=== PATIENT | female | born 1950 | race Caucasian/White ===

== ENCOUNTER 2017-11-23 09:24 | Outpatient (RCR) | payer OTHER ==
[2017-09-22 09:37] VITALS: BP 133/65
[2017-09-22] MEDS: ACETAMINOPHEN 325 MG TAB PO PRN (10:16)
[2017-09-22] MEDS: LIDOCAINE/SOD BICARB 8.4% SYR ID PRN (10:16)
[2017-09-22] MEDS: NS(*) 0.9% 100 ML BAG 100 ML IVPB PRN (10:16)
[~2017-11-23 09:24] MED LIST: ALBU8.5H IH; ALPR-1 PO; ALPR-459 PO; CHOL100058 PO; CITA-141 PO; CYAN100088 PO; DEXL60CA6 PO; DEXTROSE 5%(*) 100 ML BAG 100 ML IVPB PRN; DICL100G39 TOP; DILT240C76 PO; DOXY-179 PO; DULO30CA35 PO; FERR240T18 PO; FERR325T24 PO; FLUT1DIS29 IH; GUAI120L3 PO; HEPA1DIS12 IM; HYDR-318 PO; HYDR-385 PO; HYDR2TAB74 PO; INF100I IV; INFLIXIMAB IVPB ONE; LEVO75TA73 PO; LEVO88TA45 PO; LIDO700A29 TD; LORATADINE 10 MG TAB PO PRN; METH2.5T43 PO; NS 0.9% IVPB ONE; ONDA4TAB PO; ONDA8TAB98 PO; PRAV20TA66 PO; PRE1 PO; PRE5 PO; PROM-110 PO; ROS10 PO; TRAZ-156 PO; TURM500C7 PO; ZOLP-1 PO; ZOLP-358 PO
[2017-11-23 09:29] VITALS: BP 144/79
[2017-11-23] MEDS: LIDOCAINE/SOD BICARB 8.4% SYR ID PRN (09:44)
[2017-11-23] MEDS: NS(*) 0.9% 100 ML BAG 100 ML IVPB PRN (09:49)
[2017-11-23] MEDS: ACETAMINOPHEN 325 MG TAB PO PRN (09:51)
[2017-11-23 09:54] LABS: PLATELET COUNT, AUTOMATED 334 K/uL (150-450)
[2017-11-23] MEDS ORDERED: inFLIXimab 100 MG VIAL 700 MG in NS(*) 0.9% 250 ML BAG 250 ML IVPB ONE (10:30)
[2017-11-24] MEDS ORDERED: ALPR-1 PO (16:48)
[2017-11-30] MEDS ORDERED: ONDA8TAB98 PO (13:25)
[2017-11-30] MEDS ORDERED: HYDR-385 PO (15:47)
== END 2017-12-20 ==
LOC: SPU 09:24
PROVIDERS: ATTEND Nurse Practitioner Family
DX: K50.012 Crohn's disease of small intestine with intestinal obstruction (principal)
CPT/HCPCS: 82565; 84450; 85025; 85651; 86480; 96413; 96415; J1745; J7050

== ENCOUNTER → 2017-11-25 | Outpatient (CLI) | payer OTHER ==
[~2017-11-25] MED LIST changes: -DEXTROSE 5%(*) 100 ML BAG 100 ML IVPB PRN; -INFLIXIMAB IVPB ONE; -LORATADINE 10 MG TAB PO PRN; -NS 0.9% IVPB ONE
--- NOTE | 2017-11-25 14:46 | RADIOLOGY IMAGING REPORT ---
[place] [facility] [place] Micheline Ballard : 1950 MR: [id number] V: [id number] EXAM DATE: ORDERING PHYSICIAN: JERRY MCCLAIN TECHNOLOGIST: Location: [facility] Patient: Micheline Ballard : 1950 Visit/Account:[id number] Date of Sevice: 11/25/2017 Exam type: CHEST PA AND LAT History: cough, back pain Comparison: September 24, 2016. Findings: The lungs are free of acute effusions, infiltrates or edema. There is a small linear scar in the lef t lung base. The cardiac silhouette is normal in size. The trachea is midline. There are moderate spondylotic changes of the thoracic spine. IMPRESSION: 1. Small linear scar in the left lung base although no evidence of acute pulmonary consolidation Report Dictated By: Stephanie Arechiga MD at 11/25/2017 2:40 PM Report E-Signed By: Stephanie Arechiga MD at 11/25/2017 2:42 PM WSN:[email or web address]
--- NOTE | 2017-11-25 14:49 | RADIOLOGY IMAGING REPORT ---
FACILITY: [facility] PATIENT NAME: Micheline Ballard : 1950 MR: [id number] V: [id number] EXAM DATE: ORDERING PHYSICIAN: JERRY MCCLAIN TECHNOLOGIST: Location: [facility] [place] Patient: Micheline Ballard : 1950 Visit/Account:[id number] Date of Sevice: 11/25/2017 Exam type: THORACIC SPINE 2 VIEW History: cough, back pain Comparison: None. Findings: There are moderate spondylotic changes of the thoracic spine with disc space narrowing and small melania inal osteophytes. There is no evidence of acute fractures or subluxations IMPRESSION: 1. Moderate spondylotic changes of the thoracic spine Report Dictated By: Stephanie Arechiga MD at 11/25/2017 2:42 PM Report E-Signed By: Stephanie Arechiga MD at 11/25/2017 2:43 PM WSN:[email or web address]
== END ==
LOC: RAD 13:13
PROVIDERS: ATTEND Internal Medicine
DX: R91.8 Other nonspecific abnormal finding of lung field (principal); M47.894 Other spondylosis, thoracic region
CPT/HCPCS: 71046; 72070

== ENCOUNTER 2018-01-26 08:04 | Outpatient (RCR) | payer OTHER ==
[~2018-01-26 08:04] MED LIST changes: +DEXTROSE 5%(*) 100 ML BAG 100 ML IVPB PRN; +LIDOCAINE/SOD BICARB 8.4% SYR ID PRN; +NS(*) 0.9% 100 ML BAG 100 ML IVPB PRN
[2018-01-26 13:18] VITALS: BP 103/69
[2018-01-26] MEDS ORDERED: LORATADINE 10 MG TAB PO PRN (13:25)
[2018-01-26] MEDS ORDERED: ACETAMINOPHEN 325 MG TAB PO PRN (13:25)
[2018-01-26] MEDS ORDERED: inFLIXimab 100 MG VIAL 700 MG in NS(*) 0.9% 250 ML BAG 250 ML IVPB ONE (14:15)
[2018-01-26 16:03] VITALS: BP 111/84
[2018-01-31] MEDS ORDERED: CEPH500C24 PO (16:23)
== END 2018-02-17 11:00 | disposition home or self-care (01) ==
LOC: SPU 08:04
PROVIDERS: ATTEND Nurse Practitioner Family
DX: K50.012 Crohn's disease of small intestine with intestinal obstruction (principal)
CPT/HCPCS: 96413; 96415; J1745; J7050

== ENCOUNTER → 2018-01-31 | Outpatient (CLI) | payer OTHER ==
[~2018-01-31] MED LIST changes: +CEPH500C24 PO; -DEXTROSE 5%(*) 100 ML BAG 100 ML IVPB PRN; -LIDOCAINE/SOD BICARB 8.4% SYR ID PRN; -NS(*) 0.9% 100 ML BAG 100 ML IVPB PRN
--- NOTE | 2018-01-31 15:07 | RADIOLOGY IMAGING REPORT ---
FACILITY: [facility] PATIENT NAME: Micheline Ballard : 1950 MR: [id number] V: [id number] EXAM DATE: ORDERING PHYSICIAN: JOSELUIS PETERSEN TECHNOLOGIST: Location: [facility] Patient: Micheline Ballard : 1950 Visit/Account:[id number] Date of Sevice: 01/31/2018 Right upper extremity venous Doppler duplex ultrasound scan. HISTORY: Redness, pain, swelling right upper extremity, previous history of right upper extremity DVT . COMPARISON: 11/08/2016. A venous color flow Doppler duplex ultrasound scan with spectral analysis was performed on the upper extremity. The basilic vein, brachial veins, cephalic vein, axillary vein and internal jugular vein are unremarkable. The lateral aspect of the subclavian vein is unremarkable. The medial aspect of t he subclavian vein, the innominate vein, and the superior vena cava are obscured. Note that Doppler ultrasound is insensitive for evaluating the central veins of the chest. Thrombus in the right cephalic vein has resolved compared to previous. IMPRESSION: Resolution of right cephalic vein thrombus. Negative for acute deep vein thrombosis. Report Dictated By: Edgard Brownlee MD at 01/31/2018 2:59 PM Report E-Signed By: Edgard Brownlee MD at 01/31/2018 3:03 PM WSN:[email or web address]
== END ==
LOC: RAD 13:18
PROVIDERS: ATTEND Nurse Practitioner Primary Care
DX: M79.601 Pain in right arm (principal)

== ENCOUNTER → 2018-03-30 | Outpatient (CLI) | payer OTHER ==
[~2018-03-30] MED LIST changes: +ACETAMINOPHEN 325 MG TAB PO PRN; +DEXTROSE 5%(*) 100 ML BAG 100 ML IVPB PRN; -HEPA1DIS12 IM; +HEPA1DIS3 IM; +HEPA40VI2 IM; +LIDOCAINE/SOD BICARB 8.4% SYR ID PRN; +LORATADINE 10 MG TAB PO PRN; +NS(*) 0.9% 100 ML BAG 100 ML IVPB PRN; +inFLIXimab 100 MG VIAL 700 MG in NS(*) 0.9% 250 ML BAG 250 ML IVPB ONE
[2018-03-30 10:44] LABS: PLATELET COUNT, AUTOMATED 347 K/uL (150-450)
[2018-03-30 10:57] VITALS: BP 132/92
[2018-03-30 14:25] VITALS: BP 115/72
== END ==
LOC: SPU 07:39
PROVIDERS: ATTEND Internal Medicine
DX: M05.79 Rheumatoid arthritis with rheumatoid factor of multiple sites without organ or systems involvement (principal)
CPT/HCPCS: 82565; 84450; 85025; 85651; 96413; 96415; J1745; J7050

== ENCOUNTER → 2018-06-06 | Outpatient (CLI) | payer OTHER ==
[~2018-06-06] MED LIST changes: -TRAZ-156 PO; +TRAZ50TA34 PO; -inFLIXimab 100 MG VIAL 700 MG in NS(*) 0.9% 250 ML BAG 250 ML IVPB ONE; +inFLIXimab 100 MG VIAL 700 MG in NS(*) 0.9% 250 ML BAG 250 ML IVPB PRN
[2018-06-06 13:11] VITALS: BP 145/93
[2018-06-06 13:38] LABS: PLATELET COUNT, AUTOMATED 332 K/uL (150-450)
== END ==
LOC: SPU 09:13
PROVIDERS: ATTEND Internal Medicine Rheumatology
DX: M05.79 Rheumatoid arthritis with rheumatoid factor of multiple sites without organ or systems involvement (principal)
CPT/HCPCS: 82565; 84450; 85025; 85651; 96413; 96415; J1745; J7050

== ENCOUNTER 2018-07-07 20:18 | Emergency (ER) | payer OTHER ==
[~2018-07-07 20:18] MED LIST changes: -ACETAMINOPHEN 325 MG TAB PO PRN; -DEXTROSE 5%(*) 100 ML BAG 100 ML IVPB PRN; -LIDOCAINE/SOD BICARB 8.4% SYR ID PRN; -LORATADINE 10 MG TAB PO PRN; -NS(*) 0.9% 100 ML BAG 100 ML IVPB PRN; -inFLIXimab 100 MG VIAL 700 MG in NS(*) 0.9% 250 ML BAG 250 ML IVPB PRN
--- NOTE | 2018-07-07 20:27 | ER Report ---
History and Physical Time Seen By MD: 20:27 Hx. of Stated Complaint: PT REPORTS HAVING A FEW DRINKS AND THEN TRIPPED ON STEPS AT HOUSE. PT HAS SKIN FLAP ON LOWER LEFT LEG. HPI/ROS CHIEF COMPLAINT: leg laceration HISTORY OF PRESENT ILLNESS: This is a 67 year old female. She tripped at home on the stairs and has a large laceration on the left leg, anterior arroyo. Large flap of skin sheered off. No other injuries. Allergies: Coded Allergies: amoxicillin (Verified Adverse Reaction, Unknown, diarrhea, 07/07/18) clavulanic acid (Verified Adverse Reaction, Unknown, diarrhea, 07/07/18) morphine (Verified Adverse Reaction, Unknown, respiratory depression, 07/07/18) Home Meds Active Scripts Hydrocodone Bit/Acetaminophen (HYDROCODON-ACETAMINOPHEN 5-325) 1 Each Tablet, 1 EACH PO Q4H PRN for PAIN, #12 TAB 0 Refills Prov:SCOTTIE LEWIS MD 07/07/18 Cephalexin Monohydrate (CEPHALEXIN) 500 Mg Cap, 500 MG PO Q6H, #20 CAP 0 Refills Prov:SCOTTIE LEWIS MD 07/07/18 Albuterol Sulfate 90 Mcg/Act (PROAIR HFA 90 MCG/ACT) 8.5 Gm Hfa.aer.ad, 2 PUFF IH QID PRN for SHORTNESS OF BREATH, #1 INHALER Prov:JERRY MCCLAIN MD 05/29/18 Cephalexin Monohydrate (CEPHALEXIN) 500 Mg Cap, 1 CAP PO QID for 7 Days, #28 CAP 0 Refills Prov:JOSELUIS PETERSEN DNP, TRAVEL REGISTERED NURSE PACU-BC 01/31/18 Alprazolam 0.25 Mg Tab (XANAX 0.25 MG TAB) 0.25 Mg Tablet, 1 TAB PO QDAY PRN for ANXIETY, #30 TAB Prov:JERRY MCCLAIN MD 12/29/17 Hydrocodone Bit/Acetaminophen (HYDROCODON-ACETAMINOPHEN 5-325) 1 Each Tablet, 1 EACH PO Q6H PRN for pain, #30 TAB Prov:JERRY MCCLAIN MD 11/30/17 Ondansetron (ONDANSETRON ODT) 8 Mg Tab.rapdis, 8 MG PO TID PRN for nausea, #30 TAB 2 Refills Prov:JERRY MCCLAIN MD 11/30/17 Diltiazem Hcl (DILTIAZEM 24HR ER) 240 Mg Cap.er.24h, 1 CAP PO QDAY, #90 TAB 2 Refills Prov:JERRY MCCLAIN MD 10/25/17 Dexlansoprazole (DEXILANT) 60 Mg Cap., 1 CAP PO QDAY, #90 TAB 2 Refills Prov:JERRY MCCLAIN MD 10/25/17 Levothyroxine Sodium (LEVOTHYROXINE SODIUM) 75 Mcg Tablet, 1 TAB PO QDAY, #90 TAB 2 Refills Prov:JERRY MCCLAIN MD 10/25/17 Fluticasone/Salmeterol (ADVAIR 500-50 DISKUS) 1 Each Disk.w.dev, 1 EACH IH BID, #3 INH 6 Refills Prov:JERRY MCCLAIN MD 09/21/17 Pravastatin Sodium (PRAVASTATIN SODIUM) 20 Mg Tablet, 20 MG PO QDAY, #30 TAB 5 Refills Prov:JERRY MCCLAIN MD 09/21/17 Duloxetine Hcl (CYMBALTA) 30 Mg Capsule.dr, 30 MG PO QDAY, #30 CAP once daily x 1 week than 2 daily Prov:JERRY MCCLAIN MD 09/21/17 Citalopram Hydrobromide (CITALOPRAM HBR) 40 Mg Tablet, 0.5 TAB PO QDAY, #1 TAB 0.5 tablet daily x 1 week Prov:JERRY MCCLAIN MD 09/21/17 Ferrous Gluconate (FERROUS GLUCONATE) 240 Mg Tablet, 240 MG PO QDAY, #180 TAB 4 Refills Prov:JERRY MCCLAIN MD 06/15/17 Cyanocobalamin (Vitamin B-12) (B-12) 1,000 Mcg Tablet.er, 1000 MCG PO QDAY, #90 TAB 1 Refill Prov:JERRY MCCLAIN MD 12/10/16 Reported Medications Methotrexate Sodium (METHOTREXATE) 2.5 Mg Tablet, 4 TAB PO Q706/15/17 Cholecalciferol (Vitamin D3) (VITAMIN D) 1,000 Unit Capsule, 1 CAP PO QDAY, CAPSULE 09/01/16 Prednisone 5 Mg Tab (PREDNISONE 5 MG TAB) 5 Mg Tablet, 10 MG PO QDAY, TAB 08/31/16 Infliximab (REMICADE) 100 Mg Soln, 800 MG IV [id number] 08/31/16 Lidocaine (LIDODERM) 700 Mg Adh..patch, 1 PATCH TD QDAY 08/31/16 Diclofenac Sodium 1% Gel (VOLTAREN 1% GEL) 100 Gm Gel..gram., 1 MARY TOP PRN 08/31/16 Reviewed Nurses Notes: Yes Hx Smoking: No Smoking Status: Never Smoker Constitutional Vital Sign - Last 24 Hours 07/07/18 07/07/18 07/07/18 07/07/18 20:23 20:23 20:33 21:59 Temp 97.9 Pulse 80 64 85 Resp 20 16 B/P (MAP) 154/88 (110) 154/88 138/48 (78) Pulse Ox 93 93 92 O2 Delivery Room Air Room Air Physical Exam General: Alert, anxious, but otherwise no acute distress. Skin: Large skin flap skin tear laceration. about 19cm in total length. Exposes underlying subcutaneous fat. Some bruising of the surrounding tissue. Cardiovascular: Normal pulses and capillary refill. Musculoskeletal: Normal motor function. No tendon compromise. Neuro: Normal sensation. Medical Decision Making ED Course/Re-evaluation ED Course Procedure: Laceration Repair Verbal consent from patient after discussing repair options, risks and benefits. Wound cleaned extensively with Hibiclens and saline. Anesthesia: 2% lidocaine without epinephrine and 0.5% bupivacaine without epinephrine. Location: left anterior arroyo. Length: 19cm. Character: flap. There were no deep structures involved. No tendon injury was identified. Wound repair: 25 interrupted 4-0 Ethilon sutures, with one 4-0 Ethilon mattress suture. The wound repair was simple and performed by myself. Wound care instructions discussed. Sutures need to be removed in 7 days. Cephalexin 500mg four times a day for 5 days. Decision to Disposition Date: Jul 07, 2018 Decision to Disposition Time: 21:54 Depart Departure Latest Vital Signs Vital Signs Date Time Temp Pulse Resp B/P (MAP) Pulse Ox O2 Delivery O2 Flow Rate FiO2 07/07/18 21:59 85 16 138/48 (78) 92 Room Air 07/07/18 20:23 97.9 Impression: Primary Impression: Leg laceration Condition: Improved Disposition: HOME OR SELF-CARE Referrals: JERRY MCCLAIN MD (PCP) New Scripts Hydrocodone Bit/Acetaminophen (HYDROCODON-ACETAMINOPHEN 5-325) 1 Each Tablet 1 EACH PO Q4H PRN for PAIN, #12 TAB 0 Refills Prov: SCOTTIE LEWIS MD 07/07/18 Cephalexin Monohydrate (CEPHALEXIN) 500 Mg Cap 500 MG PO Q6H, #20 CAP 0 Refills Prov: SCOTTIE LEWIS MD 07/07/18 Patient Instructions: Laceration (ED) Additional Instructions: Wound Care: Wash the wound once a day with soap and water. Dry the wound and apply a small amount of antibiotic ointment with a clean dressing. If the dressing becomes wet or dirty, repeat cleaning and dressing as above. No soaking the wound; no swimming. Stitches need to be removed in 7 days. Pain Control: Use Lortab 5/325, one every 4 hours as needed for pain. Using and ice pack can help reduce swelling. Antibiotic: Cephalexin 500mg 4 times a day for 5 days. Problem Qualifiers Primary Impression: Leg laceration Encounter type: initial encounter Laterality: left Qualified Codes: S81.812A - Laceration without foreign body, left lower leg, initial encounter SCOTTIE LEWIS MD Jul 07, 2018 20:27
[2018-07-07] MEDS ORDERED: LOR5/325 PO (21:55)
[2018-07-07] MEDS ORDERED: CEPH500C24 PO (21:55)
[2018-07-07 21:59] VITALS: BP 138/48
[2018-07-07] MEDS ORDERED: APAP/HYDROCODONE 325/5 TAB PO ONE (22:00)
[2018-07-07] MEDS ORDERED: CEPHALEXIN 500 MG CAP TH 2 CAP/BOTTLE PO ONE (22:00)
[2018-07-07] MEDS ORDERED: ACET/HYDROC 5/325MG TH ER ONLY 2 TAB/BOTTLE PO ONE (22:00)
[2018-07-07] MEDS ORDERED: CEPHALEXIN MONO 500 MG CAP PO ONE (22:00)
== END 2018-07-07 22:17 | disposition home or self-care (01) ==
LOC: ER 20:26
DX: S81.812A Laceration without foreign body, left lower leg, initial encounter (principal); W18.49XA Other slipping, tripping and stumbling without falling, initial encounter
CPT/HCPCS: 99283

== ENCOUNTER 2018-08-10 12:27 | Emergency (ER) | payer OTHER ==
[~2018-08-10 12:27] MED LIST changes: +LOR5/325 PO
--- NOTE | 2018-08-10 13:14 | ER Report ---
History and Physical Time Seen By : 12:55 Hx. of Stated Complaint: Pt. has poorly healing left arroyo wound from laceration on 07/14. Pus at wound site. Pt. getting IV Remecade infusions for her RA. Tearful in triage. HPI/ROS CHIEF COMPLAINT: Wounds to left lower leg HISTORY OF PRESENT ILLNESS: 67-year-old female patient presents to emergency room with complaint of a wound to the left lower leg. Patient states that she hit her arroyo going up stairs a month ago and it up with a large skin tear. She states she did come to the emergency room that night and that was sutured up. She states she has since followed up with urgent care to have sutures removed and then to treat a infection which developed after the sutures were removed. Patient states that she was seen down in [place] yesterday was told by the nurse there that she is getting that evaluated as soon as possible as she is concerned that might be infected in the getting worse. Patient did try to get in with a wound care clinic, however was told that the early second get her and was in August. Patient is concerned that her infection may be getting worse. Patient had a culture done at the urgent care and was told that it was "normal". Allergies: Coded Allergies: amoxicillin (Verified Adverse Reaction, Unknown, diarrhea, 08/10/18) clavulanic acid (Verified Adverse Reaction, Unknown, diarrhea, 08/10/18) morphine (Verified Adverse Reaction, Unknown, respiratory depression, 08/10/18) Home Meds Active Scripts Albuterol Sulfate 90 Mcg/Act (PROAIR HFA 90 MCG/ACT) 8.5 Gm Hfa.aer.ad, 2 PUFF IH QID PRN for SHORTNESS OF BREATH, #1 INHALER Prov:JERRY MCCLAIN MD 05/29/18 Ondansetron (ONDANSETRON ODT) 8 Mg Tab.rapdis, 8 MG PO TID PRN for nausea, #30 TAB 2 Refills Prov:JERRY MCCLAIN MD 11/30/17 Diltiazem Hcl (DILTIAZEM 24HR ER) 240 Mg Cap.er.24h, 1 CAP PO QDAY, #90 TAB 2 Refills Prov:JERRY MCCLAIN MD 10/25/17 Dexlansoprazole (DEXILANT) 60 Mg Cap., 1 CAP PO QDAY, #90 TAB 2 Refills Prov:JERRY MCCLAIN MD 10/25/17 Levothyroxine Sodium (LEVOTHYROXINE SODIUM) 75 Mcg Tablet, 1 TAB PO QDAY, #90 TAB 2 Refills Prov:JERRY MCCLAIN MD 10/25/17 Fluticasone/Salmeterol (ADVAIR 500-50 DISKUS) 1 Each Disk.w.dev, 1 EACH IH BID, #3 INH 6 Refills Prov:JERRY MCCLAIN MD 09/21/17 Pravastatin Sodium (PRAVASTATIN SODIUM) 20 Mg Tablet, 20 MG PO QDAY, #30 TAB 5 Refills Prov:JERRY MCCLAIN MD 09/21/17 Citalopram Hydrobromide (CITALOPRAM HBR) 40 Mg Tablet, 0.5 TAB PO QDAY, #1 TAB 0.5 tablet daily x 1 week Prov:JERRY MCCLAIN MD 09/21/17 Cyanocobalamin (Vitamin B-12) (B-12) 1,000 Mcg Tablet.er, 1000 MCG PO QDAY, #90 TAB 1 Refill Prov:JERRY MCCLAIN MD 12/10/16 Reported Medications Cholecalciferol (Vitamin D3) (VITAMIN D) 1,000 Unit Capsule, 1 CAP PO QDAY, CAPSULE 09/01/16 Prednisone 5 Mg Tab (PREDNISONE 5 MG TAB) 5 Mg Tablet, 10 MG PO QDAY, TAB 08/31/16 Infliximab (REMICADE) 100 Mg Soln, 800 MG IV [id number] 08/31/16 Lidocaine (LIDODERM) 700 Mg Adh..patch, 1 PATCH TD QDAY 08/31/16 Diclofenac Sodium 1% Gel (VOLTAREN 1% GEL) 100 Gm Gel..gram., 1 MARY TOP PRN 08/31/16 Discontinued Reported Medications Methotrexate Sodium (METHOTREXATE) 2.5 Mg Tablet, 4 TAB PO Q7DAY 06/15/17 Discontinued Scripts Hydrocodone Bit/Acetaminophen (HYDROCODON-ACETAMINOPHEN 5-325) 1 Each Tablet, 1 EACH PO Q4H PRN for PAIN, #12 TAB 0 Refills Prov:SCOTTIE LEWIS MD 07/07/18 Cephalexin Monohydrate (CEPHALEXIN) 500 Mg Cap, 500 MG PO Q6H, #20 CAP 0 Refills Prov:SCOTTIE LEWIS MD 07/07/18 Cephalexin Monohydrate (CEPHALEXIN) 500 Mg Cap, 1 CAP PO QID for 7 Days, #28 CAP 0 Refills Prov:JOSELUIS PETERSEN DNP, RENAL MEDICINE PHYSICIAN-BC 01/31/18 Alprazolam 0.25 Mg Tab (XANAX 0.25 MG TAB) 0.25 Mg Tablet, 1 TAB PO QDAY PRN for ANXIETY, #30 TAB Prov:JERRY MCCLAIN MD 12/29/17 Hydrocodone Bit/Acetaminophen (HYDROCODON-ACETAMINOPHEN 5-325) 1 Each Tablet, 1 EACH PO Q6H PRN for pain, #30 TAB Prov:JERRY MCCLAIN MD 11/30/17 Duloxetine Hcl (CYMBALTA) 30 Mg Capsule.dr, 30 MG PO QDAY, #30 CAP once daily x 1 week than 2 daily Prov:JERRY MCCLAIN MD 09/21/17 Ferrous Gluconate (FERROUS GLUCONATE) 240 Mg Tablet, 240 MG PO QDAY, #180 TAB 4 Refills Prov:JERRY MCCLAIN MD 06/15/17 Reviewed Nurses Notes: Yes Hx Smoking: No Smoking Status: Never Smoker Hx Substance Use Disorder: No Hx Alcohol Use: No Constitutional Vital Sign - Last 24 Hours 08/10/18 08/10/18 12:41 14:07 Temp 98.3 Pulse 74 61 Resp 16 16 B/P (MAP) 117/80 107/62 (77) Pulse Ox 96 95 O2 Delivery Room Air Room Air Physical Exam General appearance: Alert no distress. Respiratory: Chest is non tender, lungs are clear to auscultation. Cardiac: Regular rate and rhythm. Skin: Patient has a cold wound to the left lower leg, it does appear that it has slough over the top, there is some drainage noted. DIFFERENTIAL DIAGNOSIS: After history and physical exam differential diagnosis was considered for delayed healing of wound. Medical Decision Making ED Course/Re-evaluation ED Course Patient was admitted to exam room, history and physical were obtained. Differential diagnoses were considered. On examination patient had a wound to the left lower leg which had what appeared to be delayed healing. With patient being anxious about wound care I did contact is good therapy which came down and evaluated and placed a dressing. They felt that the wound was looking well and would heal without any difficulties. I discussed this with patient. We will go ahead and discharge her home at this time. She does have a follow-up appointment at 10:30 with physical therapy on Tuesday next week. She missed make that appointment. She verbalized understanding and agreement with plan. Decision to Disposition Date: Aug 10, 2018 Decision to Disposition Time: 13:57 Depart Departure Latest Vital Signs Vital Signs Date Time Temp Pulse Resp B/P (MAP) Pulse Ox O2 Delivery O2 Flow Rate FiO2 08/10/18 14:07 61 16 107/62 (77) 95 Room Air 08/10/18 12:41 98.3 Impression: Primary Impression: Leg wound, left Condition: Improved Disposition: HOME OR SELF-CARE Referrals: JERRY MCCLAIN MD (PCP) Patient Instructions: Chronic Wound Care (ED) Additional Instructions: Follow up with PT on Tuesday at 10:30. Get plenty of rest. Limit activity by pain. Continue with normal medications. Return to the ER if condition worsens. Problem Qualifiers Primary Impression: Leg wound, left Encounter type: initial encounter Qualified Codes: S81.802A - Unspecified open wound, left lower leg, initial encounter TKTREVA RENAL MEDICINE PHYSICIAN Aug 10, 2018 13:14
[2018-08-10 14:07] VITALS: BP 107/62
== END 2018-08-10 14:15 | disposition home or self-care (01) ==
LOC: ER 12:56
DX: S81.802A Unspecified open wound, left lower leg, initial encounter (principal)
CPT/HCPCS: 97161; 99282

== ENCOUNTER 2018-08-29 10:30 | Outpatient (RCR) | payer OTHER ==
--- NOTE | 2018-08-17 23:14 | PT INITIAL EVALUATION ---
MEDICAL DIAGNOSIS: Trauma to L) anterior arroyo with slow healing skin tear TREATMENT DIAGNOSIS: same DATE OF ONSET: 07/07/18 SUBJECTIVE: Initial injury 07/07/18 with sutures performed to affix edge of skin tear while in ER. Pt returned to ER on 08/10/18 due to concern about delayed healing and drainage. Pt notes that Urgent care removed stitches and has been completing daily dressing changes to manage the drainage. Pt was seen by this PT while in the ER at most recent visit and was determined to be a good candidate for serial debridements to ensure removal of non-viable tissue and slough and allow for faster wound healing to minimize risk of further infection. Pt arrives today with dressing clean, dry and intact. REHAB PROBLEM LIST: Slow healing wound to L) anterior arroyo with complication of RA and Crohn's diseases. OBJECTIVE: Previous scabbed area at distal end of wound was able to be fully debrided today with healed epithelium noted beneath. Main wound bed now measures: 5.8cm L x 5.5cm W x 0.3cm D with 60% granulation tissue and 40% yellow slough present. ASSESSMENT: Pt indicates this is a very slow healing wound that was a fairly significant skin tear. Pt notes that her has been performing once or twice daily dressing changes to manage the copious drainage associated with this wound. Pt would benefit from advanced wound care products to optimize wound healing time while minimizing risk of infection, as she does have RA and Crohn's which can negatively impact wound healing as well. Short Term Goals 1. Pt to maintain a clean, dry and intact dressing between PT visits 2. Wound bed to demo 100% granulation base 3. Wound edges to gradually epithelialize inward for safe wound healing 4. No signs or symptoms of infection to be present during wound healing Patient's Goals Wound to heal efficiently without further complication PLAN: Patient to be seen for selective debridement, and advanced wound care product selection to optimize wound healing, once every other week for up to 3 months. Thank you for this referral. If you have any questions, comments, or concerns about this report or plan, please contact me at . H. Michela Abdul, PT, MPT, OMS MTDD
== END 2018-09-28 13:54 | disposition home or self-care (01) ==
LOC: PT 10:30
PROVIDERS: ATTEND Nurse Practitioner Family
DX: L97.921 Non-pressure chronic ulcer of unspecified part of left lower leg limited to breakdown of skin (principal); M06.9 Rheumatoid arthritis, unspecified; K50.90 Crohn's disease, unspecified, without complications
CPT/HCPCS: 97161

== ENCOUNTER 2019-05-22 17:42 | Emergency (ER) | payer OTHER ==
[~2019-05-22 17:42] MED LIST changes: -ROS10 PO; +ROSU10TA PO; -TRAZ50TA34 PO; +TRAZ50TA52 PO
[2019-05-22 17:58] VITALS: BP 132/86
[2019-05-22] MEDS ORDERED: APAP/HYDROCODONE 325/5 TAB PO ONE (18:10)
--- NOTE | 2019-05-22 18:16 | ER Report ---
History and Physical Time Seen By MD: 18:05 Hx. of Stated Complaint: WAS HIKING [place] [employer] AND FELL ON A ROCK. HURT RIGHT SHOULDER AND HEAD HPI/ROS CHIEF COMPLAINT: Head pain, shoulder pain after mechanical fall HISTORY OF PRESENT ILLNESS: Patient complaining of ongoing severe right sided head pain after she fell on a loose [place] and fell onto her buttocks and then her right shoulder and head. She did not have loss of consciousness. She had no amnesia, nausea, vomiting, or focal weakness or vision changes. No chest pain or shortness of breath. No difficulty walking, no numbness or weakness. REVIEW OF SYSTEMS: Constitutional: No confusion Eyes: No double vision ENT: No change in voice Cardiovascular: No chest pain, no palpitations. Respiratory: no shortness of breath. Gastrointestinal: No abdominal pain, no vomiting. Genitourinary: No hematuria. Musculoskeletal: Chronic areas of joint pain due to rheumatoid arthritis. Otherwise negative except for history of present illness Skin: Bruises easily Neurological: Negative except history of present illness Remainder of the 14 system rev: Yes Allergies: Coded Allergies: amoxicillin (Verified Adverse Reaction, Unknown, diarrhea, 05/22/19) clavulanic acid (Verified Adverse Reaction, Unknown, diarrhea, 05/22/19) morphine (Verified Adverse Reaction, Unknown, respiratory depression, 05/22/19) Home Meds Active Scripts Albuterol Sulfate 90 Mcg/Act (PROAIR HFA 90 MCG/ACT) 8.5 Gm Hfa.aer.ad, 2 PUFF IH QID PRN for SHORTNESS OF BREATH, #1 INHALER Prov:JERRY MCCLAIN MD 05/29/18 Diltiazem Hcl (DILTIAZEM 24HR ER) 240 Mg Cap.er.24h, 1 CAP PO QDAY, #90 TAB 2 Refills Prov:JERRY MCCLAIN MD 10/25/17 Dexlansoprazole (DEXILANT) 60 Mg Cap., 1 CAP PO QDAY, #90 TAB 2 Refills Prov:JERRY MCCLAIN MD 10/25/17 Levothyroxine Sodium (LEVOTHYROXINE SODIUM) 75 Mcg Tablet, 1 TAB PO QDAY, #90 TAB 2 Refills Prov:JERRY MCCLAIN MD 10/25/17 Fluticasone/Salmeterol (ADVAIR 500-50 DISKUS) 1 Each Disk.w.dev, 1 EACH IH BID, #3 INH 6 Refills Prov:JERRY MCCLAIN MD 09/21/17 Pravastatin Sodium (PRAVASTATIN SODIUM) 20 Mg Tablet, 20 MG PO QDAY, #30 TAB 5 Refills Prov:JERRY MCCLAIN MD 09/21/17 Citalopram Hydrobromide (CITALOPRAM HBR) 40 Mg Tablet, 0.5 TAB PO QDAY, #1 TAB 0.5 tablet daily x 1 week Prov:JERRY MCCLAIN MD 09/21/17 Reported Medications Prednisone 5 Mg Tab (PREDNISONE 5 MG TAB) 5 Mg Tablet, 10 MG PO QDAY, TAB 08/31/16 Infliximab (REMICADE) 100 Mg Soln, 800 MG IV [id number] 08/31/16 Lidocaine (LIDODERM) 700 Mg Adh..patch, 1 PATCH TD QDAY 08/31/16 Diclofenac Sodium 1% Gel (VOLTAREN 1% GEL) 100 Gm Gel..gram., 1 MARY TOP PRN 08/31/16 Discontinued Reported Medications Cholecalciferol (Vitamin D3) (VITAMIN D) 1,000 Unit Capsule, 1 CAP PO QDAY, CAPSULE 09/01/16 Discontinued Scripts Ondansetron (ONDANSETRON ODT) 8 Mg Tab.rapdis, 8 MG PO TID PRN for nausea, #30 TAB 2 Refills Prov:JERRY MCCLAIN MD 11/30/17 Cyanocobalamin (Vitamin B-12) (B-12) 1,000 Mcg Tablet.er, 1000 MCG PO QDAY, #90 TAB 1 Refill Prov:JERRY MCCLAIN MD 12/10/16 Reviewed Nurses Notes: Yes Hx Smoking: No Smoking Status: Never Smoker Hx Substance Use Disorder: No Hx Alcohol Use: No Constitutional Vital Sign - Last 24 Hours 05/22/19 17:58 Temp 98.4 Pulse 73 Resp 20 B/P (MAP) 132/86 Pulse Ox 93 O2 Delivery Room Air Physical Exam General Appearance: The patient is alert, has no immediate need for airway protection and no signs of toxicity. Eyes: Pupils equal and round no pallor or injection. ENT, Mouth: Mucous membranes are moist. Negative nasal septal hematoma, negative hemotympanum bilaterally Respiratory: There are no retractions, lungs are clear to auscultation. Cardiovascular: Regular rate and rhythm. No reproducible chest wall tenderness Gastrointestinal: Abdomen is soft and non tender, no distentio Neurological: GCS is 15, cranial nerves are intact bilaterally. 5 Out of 5 strength throughout the 4 extremities. Skin: Warm and dry, no rashes. Abrasion over the right shoulder, abrasion hematoma over the right parietal scalp, ecchymosis over the left forearm. Musculoskeletal: Neck is supple non tender. C-spine is without tenderness palpation, negative T, L, S spine tenderness to palpation negative logroll bilateral hips. Pelvis is stable without pain. There is tenderness to palpation over the right acromioclavicular joint Extremities are nontender, nonswollen and have full range of motion. DIFFERENTIAL DIAGNOSIS: After history and physical exam differential diagnosis was considered for contusion versus intracranial hemorrhage versus fracture versus acromioclavicular joint sprain versus rotator cuff injury Patient's primary survey is intact, GCS 15, secondary survey significant for bruising over the right parietal cranium and right shoulder, tenderness to palpation over the AC joint. Medical Decision Making EKG/Imaging Imaging CT head is negative for any acute pathology. X-ray shoulder shows distal clavicle fracture, possibly comminuted, and the chest x-ray does not show any acute cardiopulmonary process, no pneumothorax or obvious fractured ribs. ED Course/Re-evaluation ED Course Due to patient's age, CT of the head obtained for this minor head trauma as well as chest x-ray and right shoulder x-ray. Richmond ordered for pain. Patient's C- spine was cleared clinically as was the rest of her areas. Re-evaluation Patient resting comfortably after medication. She is abortive results. She is given concussion anticipatory guidance as well. Pendulum exercises instructions. And follow-up with orthopedics emphasized. Decision to Disposition Date: May 22, 2019 Decision to Disposition Time: 19:10 Depart Departure Latest Vital Signs Vital Signs Date Time Temp Pulse Resp B/P (MAP) Pulse Ox O2 Delivery O2 Flow Rate FiO2 05/22/19 17:58 98.4 73 20 132/86 93 Room Air Impression: Primary Impression: Closed fracture of distal clavicle Additional Impressions: Blunt head trauma Chest wall contusion Tail bone pain Condition: Improved Disposition: HOME OR SELF-CARE New Scripts Hydrocodone Bit/Acetaminophen (NORCO 5-325 TABLET) 1 Each Tablet 1 EACH PO Q6H PRN for SEVERE PAIN for 3 Days, #10 TAB Prov: CONCEPCION BASSETT DO 05/22/19 Patient Instructions: Clavicle Fracture (DC), Concussion (DC) Additional Instructions: As we discussed, you need to do pendulum exercises with your shoulder 3 or 4 times daily to prevent shoulder stiffness. Take 400 mg of ibuprofen every 6 hours for pain, with food. If the pain is mild, you can take 650 mg of acetaminophen every 6 hours for pain. If your pain is severe you can add one tablet of the Richmond you were prescribed every 6 hours. If you are taking the Richmond regularly, it will cause constipation so please take it with a stool softener such as docusate. As we discussed, it is possible he could have concussion symptoms so if you find herself having headaches, difficulty concentrating, nausea, blurry vision, then please follow up with your primary care provider for reevaluation. Additionally, he continued having pain in your tailbone, then on follow with the orthopedic you can have it x-rayed. Problem Qualifiers Primary Impression: Closed fracture of distal clavicle Encounter type: initial encounter Fracture alignment: displaced Laterality: right Qualified Codes: S42.031A - Displaced fracture of lateral end of right clavicle, initial encounter for closed fracture Additional Impressions: Blunt head trauma Encounter type: initial encounter Qualified Codes: S09.8XXA - Other specified injuries of head, initial encounter Chest wall contusion Encounter type: initial encounter Laterality: right Qualified Codes: S20.211A - Contusion of right front wall of thorax, initial encounter CONCEPCION BASSETT DO May 22, 2019 18:16
--- NOTE | 2019-05-22 18:48 | RADIOLOGY IMAGING REPORT ---
FACILITY: [facility] [place] PATIENT NAME: Micheline Ballard : 1950 MR: [id number] V: [id number] EXAM DATE: ORDERING PHYSICIAN: CONCEPCION BASSETT TECHNOLOGIST: Location: [facility] Patient: Micheline Ballard : 1950 Visit/Account:[id number] Date of Sevice: 05/22/2019 Study: CT scan of the brain without intravenous contrast. Indication: Trauma Comparison study:None Technique: Multiple axial images were obtained through the brain without the use of intravenous contr ast. One of the following dose optimization techniques was utilized in the performance of this exam: Autom ated exposure control; adjustment of the mA and/or kV according to the patient's size; or use of an i terative reconstruction technique. Specific details can be referenced in the facility's radiology C T exam operational policy. The examination demonstrates no evidence of acute intracranial hemorrhage. There is no evidence of ex tra-axial collection or hydrocephalus. There is no abnormal density identified within the brain parenchyma. There is no evidence of disruption of the peripheral moctezuma-white junction. The bony structures are unremarkable. IMPRESSION:Unremarkable CT scan of the brain without contrast. Report Dictated By: Sushil Harvey at 05/22/2019 6:38 PM Report E-Signed By: Sushil Harvey at 05/22/2019 6:40 PM [id number]:[email or web address]
--- NOTE | 2019-05-22 18:56 | RADIOLOGY IMAGING REPORT ---
FACILITY: [facility] [place] PATIENT NAME: Micheline Ballard : 1950 MR: [id number] V: [id number] EXAM DATE: ORDERING PHYSICIAN: CONCEPCION BASSETT TECHNOLOGIST: Location: [facility] Patient: Micheline Ballard : 1950 Visit/Account:[id number] Date of Sevice: 05/22/2019 4 views right shoulder Indication: Fall with pain Comparison: Unavailable Findings: Mildly displaced fracture through the distal clavicle, possibly comminuted. No additional fractures are identified. There may be mild widening of the acromioclavicular joint raising the possibility of the AC joint separation injury. Limited views of the right upper lung zone are unremarkable. IMPRESSION: 1. Mildly displaced fracture through the distal right clavicle, possibly comminuted. 2. Possible widening of the right acromioclavicular joint raising the possibility of an AC joint sep aration injury. Report Dictated By: Guy Lopez MD at 05/22/2019 6:46 PM Report E-Signed By: Guy Lopez MD at 05/22/2019 6:48 PM WSN:[id number]
--- NOTE | 2019-05-22 18:56 | RADIOLOGY IMAGING REPORT ---
FACILITY: [facility] [place] PATIENT NAME: Micheline Ballard : 1950 MR: [id number] V: [id number] EXAM DATE: ORDERING PHYSICIAN: CONCEPCION BASSETT TECHNOLOGIST: Location: [facility] [place] Patient: Micheline Ballard : 1950 Visit/Account:[id number] Date of Sevice: 05/22/2019 CHEST SINGLE AP Indication: trauma Comparison: 11/25/2017 Findings: Heart size within normal limits. There is no focal infiltrate or lobar consolidation. No pneumothorax or pleural effusion. Distal right clavicular fracture is better seen on the shoulder radiograph. IMPRESSION: 1. No acute cardiopulmonary process. Report Dictated By: Guy Lopez MD at 05/22/2019 6:48 PM Report E-Signed By: Guy Lopez MD at 05/22/2019 6:49 PM WSN:[email or web address]
[2019-05-22] MEDS ORDERED: HYDR-653 PO (19:15)
== END 2019-05-22 19:20 | disposition home or self-care (01) ==
LOC: ER 18:15
DX: S42.031A Displaced fracture of lateral end of right clavicle, initial encounter for closed fracture (principal); S09.8XXA Other specified injuries of head, initial encounter; S20.211A Contusion of right front wall of thorax, initial encounter; M53.3 Sacrococcygeal disorders, not elsewhere classified
CPT/HCPCS: 70450; 71045; 73030; 99284; A4565